=== PATIENT | male | born 1990 | race Caucasian/White ===

== ENCOUNTER 2020-04-01 12:36 | Emergency (ER) | payer OTHER ==
[~2020-04-01] VITALS: Ht 177.8 cm; Wt 73.9 kg
[2020-04-01 12:55] VITALS: BP 127/83
== END 2020-04-01 15:42 | disposition home or self-care (01) ==
LOC: ER 12:36
DX: S16.1XXA Strain of muscle, fascia and tendon at neck level, initial encounter (principal); S70.01XA Contusion of right hip, initial encounter; V89.2XXA Person injured in unspecified motor-vehicle accident, traffic, initial encounter; Y93.I9 Activity, other involving external motion; Y92.488 Other paved roadways as the place of occurrence of the external cause; Y99.8 Other external cause status; M79.671 Pain in right foot
CPT/HCPCS: 70450; 72125; 73502